=== PATIENT | male | born 1950 | race Caucasian/White ===

== ENCOUNTER 2017-09-27 11:00 | Outpatient (CLI) | payer OTHER | END 2017-09-27 11:01 | disposition home or self-care (01) | DRG 554 | LOC: CONVCARE 11:00 | PROVIDERS: ATTEND Orthopaedic Surgery | DX: M16.11 Unilateral primary osteoarthritis, right hip (principal); Z96.653 Presence of artificial knee joint, bilateral | CPT/HCPCS: 72170; 73502 ==

== ENCOUNTER 2017-12-06 12:52 | Outpatient (CLI) | payer OTHER | END 2017-12-06 12:53 | disposition home or self-care (01) | DRG 561 | LOC: RAD 12:52 | PROVIDERS: ATTEND Orthopaedic Surgery | DX: Z47.1 Aftercare following joint replacement surgery (principal); Z96.642 Presence of left artificial hip joint | CPT/HCPCS: 73502 ==